=== PATIENT | female | born 1985 | race African-American/Black ===

== ENCOUNTER 2022-07-06 10:32 | Emergency (ER) | payer OTHER ==
[~2022-07-06] VITALS: Ht 157.5 cm; Wt 70.3 kg
[2022-07-06 10:37] VITALS: BP 124/91
[2022-07-06] MEDS ORDERED: NACL 0.9% 1,000 ML IV ONE ×2 (11:40→13:30)
[2022-07-06] MEDS ORDERED: LEVOFLOXACIN 500 MG/D5W PREMIX 100 ML IV ONE (11:40)
[2022-07-06 11:59] LABS: APPEARANCE,URINE CLEAR (CLEAR); BILIRUBIN,URINE 1+ (NEGATIVE); BLOOD, URINE 2+ (NEGATIVE); COLOR,URINE YELLOW (YELLOW); LEUKOCYTE ESTERASE ,URINE 2+ (NEGATIVE); NITRITE, URINE NEGATIVE (NEGATIVE); UGLUCOSE TRACE (NEGATIVE)
[2022-07-06 12:12] LABS: BASOPHILS # (AUTO) 0.1 K/uL (0.00-0.22); BASOPHILS % (AUTO) 0.3 % (0.0-2.0); EOSINOPHILS % (AUTO) 0.2 % (0.0-4.0); HEMATOCRIT 40.2 % (36-48); HEMOGLOBIN 13.5 g/dL (12.0-16.0); LYMPHOCYTES # (AUTO) 0.9 K/uL (2.5-16.5); LYMPHOCYTES % (AUTO) 5.4 % (20.5-51.1); MEAN CORPUSCULAR HEMOGLOBIN 30 pg (27-31); MEAN CORPUSCULAR HGB CONC 34 g/dL (33-37); MEAN CORPUSCULAR VOLUME 88.3 fL (80-94); MONOCYTES # (AUTO) 1.8 K/uL (0.8-1.0); MONOCYTES % (AUTO) 10.5 % (1.7-9.3); NEUTROPHILS # (AUTO) 14.5 K/uL (1.8-7.7); NEUTROPHILS % (AUTO) 83.6 % (42.2-75.2); PLATELET COUNT (AUTO) 345 K/uL (140-450); RED BLOOD CELL COUNT(AUTO) 4.56 MIL/uL (4.20-5.40); RED CELL DISTRIBUTION WIDTH 13.1 % (11.6-13.7); WHITE BLOOD COUNT (AUTO) 17.3 K/uL (4.8-10.8)
[2022-07-06 12:20] LABS: OTHER CASTS, URINE None Seen /LPF (None Seen); RBC,URINE 11-20 (MOD) /HPF (0-5)
--- NOTE | 2022-07-06 12:30 | NUR ---
received in [facility] for uti sx, n,v, poor appetite x 3 days. no active vomit. lower abd pain 5/10. denies back pain, dizziness,fever, chills. aao x4. resp even and nonlabored. vss.
[2022-07-06 12:49] LABS: ALBUMIN 3.3 g/dL (3.4-5.0); ANION GAP 11.3 (8-16); CARBON DIOXIDE 25.4 mmol/L (21-32); CREATININE 0.8 mg/dL (0.6-1.3); POTASSIUM 3.7 mmol/L (3.5-5.1); TOTAL BILIRUBIN 0.6 mg/dL (0.0-1.0)
[2022-07-06] MEDS ORDERED: KETOROLAC 30 MG/ML VIAL IVP ONE (13:40)
[2022-07-06] MEDS ORDERED: ONDANSETRON 4 MG/2 ML VIAL IVP ONE (13:40)
[2022-07-06] MEDS ORDERED: HYDROcodone/APAP 5/325 MG 1 TAB TAB PO ONE (15:20)
--- NOTE | 2022-07-06 15:20 | NUR ---
given orange juice for po challenge
[2022-07-06] MEDS ORDERED: cefTRIAXone 1,000 MG VIAL ONE (15:29)
--- NOTE | 2022-07-06 15:39 | NUR ---
given po pain meds and 2nd iv atb. no further n/v noted. vss
[2022-07-06] MEDS ORDERED: ONDA-188 PO (16:37)
[2022-07-06] MEDS ORDERED: ACET-5629 PO (16:37)
[2022-07-06] MEDS ORDERED: CEFD300C3 PO (16:37)
[2022-07-06 16:44] VITALS: BP 112/58
--- NOTE | 2022-07-19 12:06 | NUR ---
LATE ENTRY --CONFIRMED WITH PRIMARY NURSE, ROCEPHIN INFUSION STARTED 07/06/22 AT 1532 WAS COMPLETED SAME DAY AT 1602.
== END 2022-07-06 16:45 | disposition home or self-care (01) ==
LOC: MED 10:32
DX: R10.9 Unspecified abdominal pain (principal); M54.9 Dorsalgia, unspecified; R50.9 Fever, unspecified; F17.210 Nicotine dependence, cigarettes, uncomplicated
CPT/HCPCS: 36415; 74176; 80053; 81001; 83605; 83690; 84703; 85025; 87040; 87086; 96361; 96365; 96367; 96375; 99285; J0696; J1885; J1956; J2405; J7030